=== PATIENT | male | born 1975 | race Caucasian/White ===

== ENCOUNTER 2024-09-12 09:29 | Emergency (ER) | payer BC, SELFPAY ==
[2024-09-12 09:30] VITALS: BP 165/93; PULSE 101; RESP 16; TEMP 36.5; O2SAT 98; BMI 22.8
--- NOTE | 2024-09-12 10:05 | RAD_ITS ---
EXAM: XR Right Shoulder Complete, 2 or More Views CLINICAL INDICATION: INJURY/PAIN TECHNIQUE: Two or more views of the right shoulder. COMPARISON: No relevant prior studies available. FINDINGS: BONES/JOINTS: Mild degenerative change of the shoulder joints. No acute fracture. No dislocation. SOFT TISSUES: Unremarkable. RAD/Shoulder min 2 Views IMPRESSION: No acute fracture. Reading Location: [facility]
--- NOTE | 2024-09-12 10:12 | EX.ED.UPPERE ---
HPI History of Present Illness Chief Complaint: Upper Extremity Injury Detail of Chief Complaint: Right shoulder pain that started last September 05 Informant: patient Occured/Mechanism Comment: Patient states his shoulder started hurting at work. It has not gotten better. Onset/Context/Timing Onset: Weeks (1 week) Context: Sudden Onset Timing: Continuous Quality of Pain: Dull and Aching Location: Right shoulder Current Severity: Mild Maximum Severity: Severe Worsened by: Movement Relieved by: Nothing Associated Symptoms Associated Symptoms: Positive for Loss of Funtion (Due to pain); Negative for Parasthesia or Weakness Narrative Narrative: Patient is a 49-year-old [id number] male presents with right shoulder pain. He states he Andrew. He does not remedy specific injury when he was younger. He denies problems with his shoulder in the past. He denies paresthesia, anesthesia or motor weakness. He denies cardiac or respiratory symptoms. He denies neck pain. He is holding his right upper extremity abducted internally rotated and is elevating that shoulder. He denies weight gain or weight loss. He denies night sweats. Prior similar symptoms: No Recent Illness/Hospitalization: No PFSH PFSH Medical History no medical history no medical history Home Medications ?Medication ?Instructions ?Recorded ?Last Taken ?Type hydrocodone-acetaminophen 5-325mg 1 tab PO Q6H PRN PRN Pain 3 days 09/12/24 Unknown Rx 5mg-325mg #10 TABLETS prednisone 10 mg tablet 10 mg PO UD #33 tabs 09/12/24 Unknown Rx Social History Smoking Status: Current every day smoker tobacco type: cigarettes ROS ROS ED Constitutional Constitutional ED: Denies chills, fever(s), subjective or sweats Cardiovascular Cardiovascular: Denies chest pain or palpitations Respiratory/Chest Respiratory/Chest: Denies cough, dyspnea or dyspnea on exertion Musculoskeletal Musculoskeletal: Reports other Details: Per HPI narrative ; Denies back pain, myalgias or neck pain Neurologic Neurologic: Denies paresthesias or weakness Hematologic/Lymphatic Hematologic/Lymphatic: Denies easy bleeding or easy bruising EXAM Physical Exam Const Vital Signs: 09/12/24 09:30 Temperature 97.7 F L Temperature Source Oral Pulse Rate 101 H Respiratory Rate 16 Blood Pressure 165/93 H Blood Pressure Mean 117 Pulse Ox 98 Oxygen Delivery Method Room Air Positive well nourished and well developed Constitutional Narrative: Patient appears uncomfortable. He has his right shoulder elevated compared to his left internally rotated and abducted against his chest. General Appearance ED: well developed; Negative for NAD HEENT Reports moist mucous membranes normocephalic and atraumatic Eyes PERRL and EOMs intact bilaterally Neck full ROM and supple Chest Wall inspection of chest normal and palpation of chest normal Resp normal respiratory effort and clear to auscultation bilaterally Cardio regular rate, regular rhythm, S1 normal heart sound, S2 normal heart sound and no murmurs Back/Spine no CVA tenderness Back/Spine Narrative: Back appears normal. There is no pain ovation over the trapezius, scapula. Extremity Negative for normal to inspection or full ROM Extremity Narrative: Abduction past 60 degrees causes him significant discomfort. Internal/external rotation causes him discomfort. There is no pain ovation over the clavicle or AC joint. He has pain ovation insertion site of the rotator cuff/supraspinatus tendon. He has no tenderness over the bicipital groove. Axillary, median, radial and ulnar function intact. Brachioradialis, bicep, tricep reflexes 1+ and symmetric. Radial pulses 2+ and palpable. There are no dermatologic lesions noted. Neuro oriented x3 and CN's II-XII intact bilaterally Sensorium / Orientation: alert Motor Exam: strength 5/5 throughout Psych mental status grossly normal Skin General Skin Exam: Negative for petechiae Lesions: no lesions Rashes: no rashes Trauma: no lacerations or abrasions MDM MDM MDM Narrative Medical decision making narrative: X-ray was obtained to determine if there is any evidence of calcific tendinitis, osteoarthritis, or any other abnormality would explain his pain. He was treated with NSAID since he has no contraindication opiate analgesia. Radiography Chest X-Ray - ED: Read by ED Physician (4 view x-ray of the right shoulder reveals calcification of the supraspinatus tendon. There is no acute abnormality noted.) Treatment and Re-Evaluation Narrative: Based on x-ray finding he was placed on steroid. He was referred to Dr. Day who is on-call for orthopedics. I suspect his elevated blood pressure and tachycardia due to the fact that he is in pain. Discharge Plan Triage Chief Complaint: Upper Extremity Injury ED Provider: Jim Ching Dx/Rx/DC Orders Clinical Impression: Calcific supraspinatus tendonitis, Elevated blood-pressure reading without diagnosis of hypertension, Tachycardia Instructions: ED Tendonitis Prescriptions: New hydrocodone-acetaminophen 5-325 mg tablet 1 tab PO Q6H PRN PRN (Reason: Pain) 3 Days Qty: 10 0RF prednisone 10 mg tablet 10 mg PO UD Qty: 33 0RF Rx Instructions: Take 4 tablets daily for 3 days, then 3 daily for 3 days, then 2 daily for 3 days, then 1 a day for 3 days then 1 QOD for 3 doses. Primary Care Provider: Care Physician,No Primary Referrals: Dick Day MD [Med Staff - Active Staff] - 5-7 Days Print Language: Yoruba Disposition Disposition: Home, Self Care
[2024-09-12] MEDS: HYDROcodone Bitartrate/Apap 5/325 Tablet PO (10:16)
[2024-09-12 10:45] VITALS: BP 153/89; PULSE 78; RESP 16; TEMP 36.8; O2SAT 99
== END 2024-09-12 10:46 | disposition home or self-care (01) ==
PROVIDERS: Emergency Provider Emergency Medicine; Visit Provider Emergency Medicine
DX: M75.91 Shoulder lesion, unspecified, right shoulder (principal); R00.0 Tachycardia, unspecified; R03.0 Elevated blood-pressure reading, without diagnosis of hypertension; F17.210 Nicotine dependence, cigarettes, uncomplicated
CPT/HCPCS: 73030; 99282